=== PATIENT | female | born 1930 | race Asian ===

== ENCOUNTER → 2017-09-19 | Outpatient (CLI) | payer MEDICARE, OTHER | END | disposition home or self-care (01) | LOC: RADPV 15:13 | PROVIDERS: ATTEND Internal Medicine | DX: S22.42XD Multiple fractures of ribs, left side, subsequent encounter for fracture with routine healing (principal); M85.88 Other specified disorders of bone density and structure, other site; I51.7 Cardiomegaly; X58.XXXD Exposure to other specified factors, subsequent encounter | CPT/HCPCS: 71046; 71100 ==

== ENCOUNTER 2017-11-07 11:06 | Emergency (ER) | payer MEDICARE, OTHER ==
[~2017-11-07] VITALS: Ht 154.9 cm; Wt 54.1 kg
[2017-11-07] MEDS ORDERED: IBUPROFEN 400 MG TABLET PO ONE (12:30)
[2017-11-07] MEDS ORDERED: KETOROLAC TROMETHAMINE 60 MG/2 ML VIAL IM ONE (12:45)
[2017-11-07 14:10] VITALS: BP 141/71
== END 2017-11-07 14:38 | disposition home or self-care (01) ==
LOC: EMS 11:07
DX: S42.442A Displaced fracture (avulsion) of medial epicondyle of left humerus, initial encounter for closed fracture (principal); S42.472A Displaced transcondylar fracture of left humerus, initial encounter for closed fracture; I10 Essential (primary) hypertension; E11.9 Type 2 diabetes mellitus without complications; W01.0XXA Fall on same level from slipping, tripping and stumbling without subsequent striking against object, initial encounter; Y93.01 Activity, walking, marching and hiking; Y92.89 Other specified places as the place of occurrence of the external cause; Y99.8 Other external cause status
CPT/HCPCS: 29105; 73080; 96372; 99284; J1885; 29505

== ENCOUNTER → 2017-11-09 | Outpatient (CLI) | payer MEDICARE, OTHER ==
[~2017-11-09] MED LIST: IOVERSOL 320 MG/ML 100 ML VIAL ONE
== END | disposition home or self-care (01) ==
LOC: RADMN 08:44
PROVIDERS: ATTEND Internal Medicine
DX: S42.002A Fracture of unspecified part of left clavicle, initial encounter for closed fracture (principal); I70.90 Unspecified atherosclerosis; X58.XXXA Exposure to other specified factors, initial encounter; Y93.89 Activity, other specified; Y92.89 Other specified places as the place of occurrence of the external cause; Y99.8 Other external cause status
CPT/HCPCS: 71260; Q9967

== ENCOUNTER → 2019-05-23 | Outpatient (CLI) | payer MEDICARE, OTHER | END | disposition home or self-care (01) | LOC: RADPV 12:49 | PROVIDERS: ATTEND Internal Medicine | DX: J90 Pleural effusion, not elsewhere classified (principal); I70.0 Atherosclerosis of aorta; I51.7 Cardiomegaly ==